=== PATIENT | female | born 1990 | race Caucasian/White ===

== ENCOUNTER → 2017-04-06 | Outpatient (CLI) | payer OTHER ==
[~2017-04-06] VITALS: Ht 172.7 cm; Wt 134.2 kg
[~2017-04-06] MED LIST: BUSP10TA PO; CHLORHEXIDINE GLUCONATE 2 % 1 PACK (2 CLOTHS) TOPICAL PRN; INSULIN HUMAN REGULAR 1,000 UNITS/10 ML VIAL SQ PRN; LACTATED RINGER'S 1000 ML IV PRN; LORA-392 PO; METOPROLOL TARTRATE 25 MG TAB PO PRN; POVIDONE IODINE 5% (ANTISEPSIS KIT) 4 APPLICATIONS EACH NARE PRN; PROPOFOL 200 MG/20 ML AMP IV ONE; SODIUM CHLORID 0.9% 500 ML IV PRN
[2017-04-06 11:37] VITALS: BP 115/69; PULSE 90; RESP 18; TEMP 97.9; O2SAT 98
--- NOTE | 2017-04-06 14:46 | PD.PROCEDR ---
GI Procedure REFERRING PHYSICIAN Dr. Bullock PROCEDURE PERFORMED EGD with biopsy INDICATION FOR PROCEDURE Preop evaluation for bariatric surgery PROCEDURE: The procedure, risks and benefits were discussed with Ms. Addison and informed consent was obtained. Anesthesia sedated her with Diprivan. She was placed in the left lateral decubitus position. EGD: The Pentax videoscope was introduced through the oropharynx and advanced to the second portion of the duodenum under direct visualization. Retroflexion was performed in the stomach. FINDINGS: The esophagus this was normal The stomach this was normal antral biopsies were taken to rule out H. pylori The duodenum this was normal ESTIMATED BLOOD LOSS: None SPECIMENS REMOVED: Antral COMPLICATIONS: None IMPRESSION: Normal EGD PLAN: Await biopsy negative for H. pylori then patient is cleared for bariatric surgery David De Luna MD Apr 06, 2017 14:46
[2017-04-06 15:19] VITALS: BP 147/84; PULSE 86; RESP 18; TEMP 98.4; O2SAT 99
== END ==
LOC: HEND 10:54
PROVIDERS: ATTEND Internal Medicine Gastroenterology
DX: Z01.818 Encounter for other preprocedural examination (principal); Z72.4 Inappropriate diet and eating habits
CPT/HCPCS: 88305; 88312